=== PATIENT | male | born 1940 | race Caucasian/White ===

== ENCOUNTER 2018-05-29 16:42 | Inpatient (IN) | payer MEDICARE ==
[~2018-05-29 16:42] MED LIST: ISOVUE-370 76%-LOCM 1 ML ONE
[2018-05-29 17:24] LABS: #Lymphocytes 0.6 thou/uL (1.20-3.40); #Monocytes 1.1 thou/uL (0.11-0.59); #Neutrophils 8.2 thou/uL (1.40-6.50); %Basophils 0.3 % (0.0-1.0); %Eosinophils 0.2 % (0.0-10.0); %Lymphocytes 6.1 % (21.0-51.0); %Monocytes 10.6 % (0.0-10.0); %Neutrophils 82.8 % (42.0-75.0); Hemoglobin 14.6 g/dL (14.0-18.0); Mean Corpuscular HGB CONC 33.3 g/dL (32.0-36.0); Mean Corpuscular Hemoglobin 31.6 pg (27.0-31.0); Mean Corpuscular Volume 94.9 fL (78.0-98.0); Platelet Count 201 thou/uL (130-400); RBC Distribution Width 11.2 % (11.5-14.5); Red Blood Cell (RBC) Count 4.61 mill/uL (4.70-6.10)
[2018-05-29 17:39] LABS: ALT (SGPT) 13 U/L (8-55); AST (SGOT) 29 U/L (5-34); Albumin 3.8 g/dL (3.4-4.8); Alkaline Phosphatase 82 U/L (40-150); Anion Gap 16 mmol/L (10-20); BUN (Urea Nitrogen) 12 mg/dL (8.4-25.7); Bilirubin, Total 0.7 mg/dL (0.2-1.2); CK (CPK) 158 U/L (30-200); Calc. Creatinine Clearance 0 mL/min (70-130); Calcium 8.9 mg/dL (7.8-10.44); Carbon Dioxide 18 mmol/L (23-31); Chloride 103 mmol/L (98-107); Estimated GFR-MDRD 88; Globulin 2.7 g/dL (2.4-3.5); Glucose 115 mg/dL (83-110); Lipase 8 U/L (8-78); Potassium 4.4 mmol/L (3.5-5.1); Protein, Total 6.5 g/dL (5.8-8.1); Sodium 133 mmol/L (136-145)
--- NOTE | 2018-05-29 17:41 | RAD ---
AP VIEW CHEST 05/29/18 HISTORY: Chest pain. AP view chest obtained on 05/29/18. Comparison made to previous exam from 04/04/16. AP view chest demonstrates EKG leads seen over the chest. ACDF plate and screws are in place. There appears to be an area of soft tissue density in the retrocardiac area compatible with likelihoo d large hiatal hernia. No evidence of effusions seen. IMPRESSION: Findings compatible with likely large hiatal hernia, otherwise unremarkable AP view chest. POS: [facility]
[2018-05-29] MEDS ORDERED: Piperacillin/Tazobactam 4.5 GM VIAL ONE (19:33)
--- NOTE | 2018-05-29 20:41 | RAD ---
TWO VIEWS RIGHT FOREARM: 05/29/18 AP and lateral views right forearm obtained. No evidence of right forearm fractures, subluxations or bony lesions seen. IMPRESSION: Normal two views right forearm. POS: [facility]
--- NOTE | 2018-05-29 20:56 | CT ---
CONTRAST ENHANCED CTA CHEST: 05/29/18 HISTORY: Patient with arm swelling. Increased pain. Sinus arrhythmia, occasional PVC. Contrast enhanced CTA of the chest performed. 2D and 3D reconstructed images performed on an [employer] 3D workstation. CTA chest demonstrates again a hiatal hernia seen. Intrabiliary gas is seen. The patient has a histor y of previous biliary procedures. No evidence of filling defects seen in the pulmonary arteries to hernandez ggest pulmonary emboli. No significant evidence of lymphadenopathy seen. Some areas of scarring seen in the left lower lobe. Mild coronary artery calcifications seen. IMPRESSION: No evidence of pulmonary emboli seen. No evidence of significant thoracic dissection or aneurysm seen . POS: [facility]
[2018-05-29] MEDS ORDERED: Clindamycin/D5W 900 mg/50 ml Premix Bag ONE (21:08)
[2018-05-29] MEDS ORDERED: Ondansetron PF 4 MG/2 ML Vial IVP PRN (21:53)
[2018-05-29] MEDS ORDERED: Ondansetron ODT 4 MG TAB PO PRN (21:53)
[2018-05-29] MEDS ORDERED: Acetaminophen 325 MG TAB PO PRN (21:53)
--- NOTE | 2018-05-29 22:02 | ULT ---
RIGHT UPPER EXTREMITY VENOUS ULTRASOUND EVALUATION: 05/29/18 HISTORY: Right upper extremity swelling. Multiple longitudinal and transverse images of the right upper extremity venous system is obtained us ing a multihertz linear array transducer. Real time, color flow and spectral waveform doppler analysi s demonstrates the right internal jugular vein and right subclavian vein to be patent. The right axillar vein is patent. Some echogenic clot is seen in the right brachial vein extending fr om the antecubital fossa to just below the level of axilla. The right cephalic vein is patent. The right basilic vein is also patent. IMPRESSION: Area of echogenic clot in the right brachial vein between the axillary region and elbow. POS: [facility]
--- NOTE | 2018-05-29 22:08 | RAD ---
AP AND LATERAL VIEWS AND OBLIQUE VIEWS RIGHT HAND 05/29/17 Three views right hand demonstrate extensive surgical resection of the proximal portion of the carpal bones. No evidence of acute fracture, subluxations or bony lesions seen. Swelling is seen along the dorsal a spect of the right hand. IMPRESSION: Postsurgical resection of carpal bones. No acute right hand abnormality. POS: [facility]
[2018-05-29] MEDS ORDERED: VANCOMYCIN IVPB PRN (22:13)
[2018-05-29 23:29] LABS: Troponin I 0.011 ng/mL (< 0.028)
--- NOTE | 2018-05-30 01:55 | HP ---
PRIMARY CARE DOCTOR: The patient goes to [facility]. CODE STATUS FOR THIS PATIENT: Full code. TIME OF EVALUATION: 9:00 p.m. CHIEF COMPLAINT: Chest pain. HISTORY OF PRESENT ILLNESS: This is a 77-year-old male patient with past medical history of SVT, ablation, and hypothyroidism, came to the hospital after having an episode of right wrist induration, redness, as noted the patient has surgery done in the right wrist a couple of weeks ago. Orthopedic has been called and has recommended to start the patient on antibiotics also had some associated chest pain in the right upper chest, it was sharp in nature. No clear triggers , no alleviating factors, improved by self. REVIEW OF SYSTEMS: CONSTITUTIONAL: The patient had no fever. The patient had chills, generalized weakness. RESPIRATORY: No cough, sputum production, or shortness of breath. CARDIOVASCULAR: No chest pain or palpitations. GASTROINTESTINAL: No nausea, vomiting, diarrhea, or abdominal pain. WAREHOUSE MATERIAL HANDLER: The patient has been confused. No dizziness, headache, or feeling lightheaded. GENITOURINARY: No burning on urination. EXTREMITIES: Right upper arm has significant deep redness, swelling, tenderness with decreased range of motion. All other systems were reviewed and negative except for the findings mentioned above. PAST MEDICAL HISTORY: As mentioned in the HPI. PAST SURGICAL HISTORY: The patient has cholecystectomy, appendectomy, hernia repair, spinal surgery, cervical fusion, right shoulder surgery, right wrist surgery on 05/27/2018. PSYCHIATRIC HISTORY: Depression. SOCIAL HISTORY: Denies alcohol use. The patient denies drug use. No smoking history. FAMILY HISTORY: Noncontributory to this case. KNOWN ALLERGIES: To codeine and morphine. REPORTED MEDICATIONS: 1. Levothyroxine. 2. Sertraline. PHYSICAL EXAMINATION: VITAL SIGNS: On presentation, blood pressure 151/94 with heart rate 101, respiratory rate was 20, temperature 98.7, pain was 0/10, and oxygen saturation was 93% on room air. GENERAL APPEARANCE: The patient is alert, disoriented, not in acute distress. HEENT: Eyes, normal conjunctivae. Moist oral mucosa. Anicteric. No JVD. RESPIRATORY: Bilateral air entry. No rales. No wheezing. Symmetric expansion. CARDIOVASCULAR: Normal rate, regular rhythm. No murmurs. No gallop. No edema. ABDOMEN: Soft. Normal bowel sounds. MUSCULOSKELETAL: Baseline range of motion and strength except for the right wrist which has redness, tenderness, decreased range of motion, and increased temperature. SKIN: Warm, intact. No pallor. No rash. No redness except for the findings that described in musculoskeletal. Peripheral pulses are present. Capillary refill seems to be intact. NEUROLOGIC: No evidence of any new focal weakness. Baseline speech. Cranial nerves seems to be intact. PSYCHIATRIC: The patient is in good mood. No anxiety. Optimal judgment. IMAGING STUDIES: EKG was reviewed. The patient has sinus rhythm with some PACs , ventricular rate 94, VT 170, QRS 76, QT corrected 470. Chest x-ray was reviewed. The patient has findings compatible likely large hiatal hernia, otherwise unremarkable AP view chest. Chest and thorax CTA was done, the patient has no evidence of pulmonary embolism. No thoracic dissection or aneurysms seen. Vascular ultrasound was done, the patient has area of echogenic clot in the right brachial vein between the axillary region and elbow. Two-view right forearm x-ray was done, it was normal. Hand x-ray, the patient has postsurgical resection of carpal bones. No acute right hand abnormalities. LABORATORY DATA: Reviewed. The patient has white count 10, hemoglobin 14.6, MCV 94.9, and platelet count 201. Chemistry; sodium 133, potassium 4.4, chloride 103, carbon dioxide 18, anion gap 16, BUN 12, creatinine 0.84, GFR 88, glucose 115. Lactic acid 1.0, calcium 9.9. Total bilirubin 0.7, AST 29, ALT 13, and alkaline phosphatase 82. CK 158. Troponin I was negative x2. Serum total protein 6.5, albumin 3.8, globulin 2.7, albumin globulin ratio was 1.4. Lipase 8. ASSESSMENT AND PLAN: The patient will be placed in the hospital with following medical problems: 1. Right brachial deep venous thrombosis. We will discuss with Orthopedics to place the patient on full anticoagulation. Surgery was done on the , five days ago. We will follow recommendations from Orthopedics. 2. Cellulitis of the right upper extremity. The patient has been started on vancomycin, clindamycin, and Zosyn. Orthopedics been consulted. We will follow recommendations. We will follow cultures, we will adjust treatment as per sensitivity. 3. Hyponatremia with sodium of 133, this is mild, no need for any acute intervention at this point. We will monitor, we will treat accordingly. 4. Non-anion gap metabolic acidosis. No clear etiology. We will monitor and we will treat accordingly. 5. Chest pain on presentation, likely ACS. Troponins are negative. EKG is normal. We will monitor on tele, could decide on stress test in the morning is warranted , does not seem to be the primary problem. 6. Hypothyroidism, reconcile home medications. Continue hormone replacement. 7. Deep venous thrombosis prophylaxis. Job ID: [id number] [facility]ITAL[facility]
[2018-05-30] MEDS ORDERED: Clindamycin/D5W 600 MG in Premix Bag 1 BAG IVPB SCH (02:00)
[2018-05-30] MEDS ORDERED: Clindamycin/D5W 900 mg/50 ml Premix Bag ONE (02:47)
[2018-05-30] MEDS ORDERED: Piperacillin/Tazobactam 4.5 GM VIAL ONE ×2 (02:47→10:10)
[2018-05-30 04:12] LABS: #Lymphocytes 0.8 thou/uL (1.20-3.40); #Neutrophils 6.4 thou/uL (1.40-6.50); %Basophils 0.3 % (0.0-1.0); %Eosinophils 0.2 % (0.0-10.0); %Lymphocytes 9.1 % (21.0-51.0); %Monocytes 12.4 % (0.0-10.0); Hemoglobin 12.7 g/dL (14.0-18.0); Mean Corpuscular HGB CONC 33.5 g/dL (32.0-36.0); Mean Corpuscular Hemoglobin 31.7 pg (27.0-31.0); Mean Corpuscular Volume 94.7 fL (78.0-98.0); Mean Platelet Volume 8.1 fL (7.4-10.4); Platelet Count 194 thou/uL (130-400); RBC Distribution Width 11.3 % (11.5-14.5); Red Blood Cell (RBC) Count 4.01 mill/uL (4.70-6.10); White Blood Cell (WBC) Count 8.2 thou/uL (4.8-10.8)
[2018-05-30 04:26] LABS: Anion Gap 13 mmol/L (10-20); BUN (Urea Nitrogen) 12 mg/dL (8.4-25.7); Calc. Creatinine Clearance 0 mL/min (70-130); Calcium 9.2 mg/dL (7.8-10.44); Carbon Dioxide 22 mmol/L (23-31); Chloride 104 mmol/L (98-107); Estimated GFR-MDRD 78; Glucose 117 mg/dL (83-110); Potassium 3.6 mmol/L (3.5-5.1); Sodium 135 mmol/L (136-145)
[2018-05-30] MEDS ORDERED: Indomethacin 25 mg Capsule PO SCH (09:00)
[2018-05-30] MEDS ORDERED: Enoxaparin Sodium 40 MG/0.4 ML SYRINGE SC SCH ×2 (09:00→10:15)
[2018-05-30] MEDS ORDERED: Clindamycin/D5W 600 mg/50 ml Premix Bag ONE (10:10)
--- NOTE | 2018-05-30 10:44 | CON ---
DATE OF CONSULTATION: 05/30/2018 The patient seen around 7:50 a.m. this morning. HISTORY OF PRESENT ILLNESS: The patient is a 77-year-old male, who recently underwent a right wrist proximal row carpectomy for treatment of scapholunate advanced collapse wrist arthritis. He is currently postoperative day #3 as his surgery was performed this past on May 27, 2018. He was admitted to the hospital yesterday evening as recommended by his primary care physician who from what I was told performed a house call yesterday to check on the patient because he was having chest pain and short of breath and she was able to examine his right wrist and saw some swelling and recommended that he be admitted to the hospital for workup with chest pain and also to have the right hand and wrist looked at as well. I was able to visit with the patient and see him at bedside this morning. He is afebrile. He denied any fevers. Currently, he denies any numbness or tingling in the fingers of his right hand. He localizes all of his pain to the right wrist. He denies any chest pain this morning and he denies any shortness of breath this morning; however, he did report some shortness of breath while he was at home. During his surgery on , I did appreciate some chalky white substance within the wrist joint which appeared to potentially represent gout within the wrist joint and this was debrided at the time of surgery and removed and the wrist was washed out at that time and it is possible that the scapholunate advanced collapse arthritis could be related to chronic gouty arthritis. I found the patient today in the room sitting on a chair, he was hanging the right hand and arm in a dependent position and using his right hand and wrist to lift him off the chair from a seated position to a standing position without a splint over the right hand and wrist. The patient has been admitted to the Internal Medicine Service for treatment of potential cellulitis and what the ER staff thought to be cellulitis of his right hand and he had been started on IV antibiotics. He also underwent an ultrasound of the right upper extremity which showed a deep vein clot between the axillary region in the right upper extremity and the elbow. PHYSICAL EXAMINATION: GENERAL: The patient is awake, alert, and oriented x3 and does not appear to be in any significant distress at this time. However, he is hanging the arm in a dependent position and using his right hand and wrist to lift himself off from a seated position to a standing position from his chair and he is moving the right hand and wrist freely. RIGHT UPPER EXTREMITY: There is no fusiform swelling of the right upper extremity; he is nontender to palpation over the flexor forearm and extensor forearm and there are no clinical signs of compartment syndrome. He is nontender to palpation over the biceps and triceps of the proximal right upper extremity. He has full active range of motion and passive range of motion of the right elbow joint without limitation; there is a surgical incision over the mid-dorsal aspect of the right wrist which is well approximated with nylon sutures and there is no purulent drainage or pus or signs of infection noted around the site. There is expected postoperative swelling around the dorsal aspect of the hand and some erythema which is also expected postoperatively as well. There is some erythema which could be related to postoperative changes as well. He is able to flex and extend the fingers, however, finger range of motion is somewhat limited secondary to postoperative swelling. All fingers are neurovascularly intact and he is able to sense a light touch over all finger tips and all flexor and extensor tendon functions are grossly intact; gentle passive range of motion in the right wrist does not elicit any instability, crepitus, or grinding; however, there is some mild pain elicited during this maneuver which is expected 3 days postop; there are no clinical signs of compartment syndrome and swelling is very localized to the area of surgery involving his right hand and wrist; there are no epitrochlear or axillary lymphadenopathy appreciated and there is no lymphangitis appreciated; he has 2+ radial and ulnar pulses and 2+ brachial artery pulse which is equal and symmetric compared to the asymptomatic left upper extremity. DIAGNOSTIC STUDIES: Right forearm and right hand x-rays were reviewed and discussed by me with the patient and alignment appears to be normal. The capitate is well seated within the lunate fossa of the distal radius and I do not appreciate any significant joint space widening and I do not appreciate any radiographic evidence of infection. His laboratory work which consist of complete blood cell count and chem-7 panels do not reveal any elevation in the white cell count The ultrasound performed of the right upper extremity shows an echogenic abnormality involving one of the veins between the axilla and the elbow of the right upper extremity, potentially resembling a venous thrombosis in this area as per official reading by the report. ASSESSMENT AND PLAN: Right hand and wrist pain and swelling postoperative day # 3, status post right wrist proximal row carpectomy. I do not see any clinical signs of infection and clinically, I do not believe that his symptoms this morning are consistent with cellulitis, however, if there is concern for cellulitis, the Internal Medicine team may consider continuing the antibiotics. I did place him on indomethacin to start today 50 mg 3 times a day and he should continue the indomethacin for 7 days in order to treat potential gout flare. He may discontinue the Ibuprofen while on the Indomethacin. I replaced the patient into a volar wrist splint today which he states felt comfortable and I propped the right hand and wrist up on 2 pillows today above the level of his heart in order to help treat the swelling and the pain and recommended to utilize ice packs over the hand and wrist also to help reduce the pain and swelling. I have instructed him to continue with a finger range of motion exercise program both active and passive. He should remain completely nonweightbearing and avoid pushing or pulling activities regarding use of his right hand and wrist and the weightbearing status regarding use of his right hand and wrist will remain in place for at least 4 to 6 weeks postoperatively. I would be happy to follow him in the hospital during his hospital stay, however, if he is discharged, he can follow up with me in the clinic as previously scheduled for his postoperative visit and suture removal. There are no contraindications from a hand and wrist standpoint to begin anticoagulation for treatment of a deep vein thrombosis in the right upper extremity and the Internal Medicine team may consider a vascular surgery consultation in order to provide further insight regarding treatment of his right upper extremity deep vein thrombosis if needed. Difficult for me to say if the findings on his recent ultrasound are chronic or acute in nature, however, given his recent surgery, there is potential that these could be acute findings. He should remain admitted to the Internal Medicine team and I would be happy to follow him as a consult during his hospital stay should any of his hand or wrist symptoms worsen. Please call Dr. Manish Martinez M.D. cellphone at [phone] for further questions. Job ID: [id number] [facility]
--- NOTE | 2018-05-30 11:27 | PRG ---
DATE OF SERVICE: 05/30/2018 SUBJECTIVE: The patient reports he feels fine this morning. He has no complaints as he is not having significant pain in his hand, and he can move his fingers adequately. Temperature 97.9, BP 126/65, pulse 82, respirations 18, O2 saturation 98% on room air. OBJECTIVE: GENERAL APPEARANCE: Age-appropriate male in no distress. He is asleep, very easily awaken, pleasant, conversant, in no distress. HEART: Regular rate and rhythm without murmurs, gallops, or rubs. LUNGS: Clear bilaterally. No wheezes or rales. ABDOMEN: Soft, nontender, and nondistended. Positive bowel sounds. No masses. No organomegaly. EXTREMITIES: Lower extremities have no cyanosis, clubbing, or edema. Right upper extremity is in a soft brace. There is some slight edema and discoloration of the proximal fingers with some edema, minimal warmth and blanchability. Normal sensation. Good capillary refill. LABORATORY DATA: White count 8.2, hemoglobin 12.7, platelets 194. Sodium 135, potassium 3.6, chloride 104, CO2 is 22, BUN 12, creatinine 0.93, glucose 117. Troponins negative x3. Blood cultures negative thus far. IMPRESSION AND PLAN: 1. Right brachial vein deep vein thrombosis. The patient is recently postop and has some inflammation of the wrist area, where he had the surgery. Therefore, we will hold off on putting him on any of the longer-acting medications and just keep him on Lovenox for now. Once he is able to be reassessed tomorrow, we can ensure that there will not be need for any surgical intervention. He may be converted over to p.o. Eliquis. 2. Right wrist inflammation. Differential includes the possibility of simple postoperative inflammatory changes, infection, or remotely even gout. We will check uric acid level in the morning. He has been started on vancomycin, Zosyn, and clindamycin. We will continue with the vancomycin and Zosyn, and stop the clindamycin. Orthopedic Surgery, who did the surgery, Dr. Martinez, saw him this morning, redressed the hand and has started him on indomethacin for inflammatory changes. His white count is normal. 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 3. Chest pain. The patient had reported some chest pain on admission as well that appears to be resolved. His troponins are negative, and his library monitor is negative. The patient underwent a stress test at this facility in March, which was negative, although there was a finding of a large hiatal hernia which is more likely this patient's source of pain. We will keep him on a PPI, and at this point, I believe it is safe to believe that this is noncardiac chest pain. The patient also had a CT angiogram of the chest to rule out potential pulmonary embolus given his brachial vein DVT. This was negative as was his chest x-ray. 4. Encephalopathy. The patient had some reported confusion and nurse indicated that at the end of her shift last evening, the patient was a bit confused. He is better this morning. Per her report, he appears to be appropriate at this time. 5. Hypothyroidism. Continue with his usual dose of levothyroxine. 6. Currently, history of some depression. Continue with his sertraline. Job ID: [id number]
[2018-05-30] MEDS ORDERED: Enoxaparin Sodium 40 MG/0.4 ML SYRINGE ONE (12:30)
[2018-05-30 15:03] VITALS: BMI 22.9
[2018-05-30] MEDS: Piperacillin/Tazobactam 4.5 GM in Sodium Chloride 0.9% 100 ML IVPB SCH ×3 (16:14→17:38)
[2018-05-30] MEDS: Losartan 25 MG TAB PO SCH (16:15)
[2018-05-30] MEDS: Vancomycin HCl 1.25 GM in Sodium Chloride 0.9% 250 ML 250 ML IVPB SCH ×2 (16:15→20:36)
[2018-05-30] MEDS: Levothyroxine Sodium 88 MCG TAB PO SCH (16:15)
[2018-05-30] MEDS: Indomethacin 25 mg Capsule PO SCH ×2 (16:16→17:38)
[2018-05-30] MEDS: Enoxaparin Sodium 40 MG/0.4 ML SYRINGE SC SCH (20:36)
[2018-05-30] MEDS ORDERED: Pravastatin Sodium 20 MG TAB PO SCH (21:00)
[2018-05-30] MEDS ORDERED: Cyclobenzaprine 10 MG TAB PO SCH (21:00)
[2018-05-31] MEDS: Piperacillin/Tazobactam 4.5 GM in Sodium Chloride 0.9% 100 ML IVPB SCH ×2 (01:30→09:21)
[2018-05-31] MEDS: Levothyroxine Sodium 88 MCG TAB PO SCH (05:09)
[2018-05-31] MEDS: Vancomycin HCl 1.25 GM in Sodium Chloride 0.9% 250 ML 250 ML IVPB SCH (08:21)
[2018-05-31] MEDS: Losartan 25 MG TAB PO SCH (08:21)
[2018-05-31] MEDS: Enoxaparin Sodium 40 MG/0.4 ML SYRINGE SC SCH (08:22)
[2018-05-31] MEDS: Indomethacin 25 mg Capsule PO SCH ×2 (08:22→11:57)
[2018-05-31 08:40] LABS: #Eosinphils 0.2 thou/uL (0.0-0.7); #Lymphocytes 0.8 thou/uL (1.20-3.40); #Monocytes 0.6 thou/uL (0.11-0.59); %Basophils 0.9 % (0.0-1.0); %Eosinophils 3.4 % (0.0-10.0); %Lymphocytes 17.4 % (21.0-51.0); %Monocytes 13.2 % (0.0-10.0); %Neutrophils 65.1 % (42.0-75.0); Hemoglobin 12.2 g/dL (14.0-18.0); Mean Corpuscular HGB CONC 33.3 g/dL (32.0-36.0); Mean Corpuscular Hemoglobin 31.7 pg (27.0-31.0); Mean Corpuscular Volume 95.1 fL (78.0-98.0); Mean Platelet Volume 7.8 fL (7.4-10.4); Platelet Count 224 thou/uL (130-400); RBC Distribution Width 11.2 % (11.5-14.5); Red Blood Cell (RBC) Count 3.87 mill/uL (4.70-6.10); White Blood Cell (WBC) Count 4.6 thou/uL (4.8-10.8)
[2018-05-31] MEDS ORDERED: Enoxaparin Sodium 40 MG/0.4 ML SYRINGE SC SCH (09:00)
[2018-05-31 09:01] LABS: Vancomycin, Trough 16.1 ug/mL
[2018-05-31 09:03] LABS: Anion Gap 12 mmol/L (10-20); BUN (Urea Nitrogen) 19 mg/dL (8.4-25.7); Calc. Creatinine Clearance 55 mL/min (70-130); Calcium 9.1 mg/dL (7.8-10.44); Carbon Dioxide 26 mmol/L (23-31); Chloride 106 mmol/L (98-107); Estimated GFR-MDRD 59; Glucose 101 mg/dL (83-110); Potassium 3.6 mmol/L (3.5-5.1); Sodium 140 mmol/L (136-145); Uric Acid 4.4 mg/dL (3.5-7.2)
[2018-05-31] MEDS ORDERED: Apixaban 5 MG TAB PO SCH ×3 (10:45→21:00)
--- NOTE | 2018-05-31 12:41 | PDOC.PN ---
- Subjective Encounter Start Date: 05/31/18 Encounter Start Time: 12:30 Subjective: Patient without pain in right wrist in splint, some right upper arm/ shoulde -: pain on and off, no chest pain, no confusion - Objective Resuscitation Status - Order Detail: 05/29/18 21:53 Resuscitation Status Routine Resuscitation Status: FULL: Full Resuscitation MAR Reviewed: Yes Vital Signs & Weight: Vital Signs (12 hours) Temp Pulse Resp BP Pulse Ox 05/31/18 08:00 97.8 F 55 L 17 121/58 L 97 05/31/18 03:49 63 16 104/64 99 Weight Weight 169 lb 3 oz I&O: 05/30/18 05/31/18 06/01/18 06:59 06:59 06:59 Intake Total 860 Output Total 300 Balance 560 Result Diagrams: 05/31/18 08:16 05/31/18 08:16 Phys Exam - Physical Examination Constitutional: NAD HEENT: moist MMs Respiratory: no wheezing, no rales, no rhonchi, clear to auscultation bilateral Cardiovascular: RRR, no significant murmur Gastrointestinal: soft, positive bowel sounds right wrist with splint in place, no erythma beyond splint Neurological: non-focal Psychiatric: normal affect, A&O x 3 Dx/Plan (1) Status post proximal row carpectomy of wrist Code(s): Z98.890 - OTHER SPECIFIED POSTPROCEDURAL STATES Status: Acute Comment: no evidence of cellulitis per ortho, no fever, no leukocytosis, will d/ c antibiotics (2) Thrombosis of right brachial vein Code(s): I82.621 - ACUTE EMBOLISM AND THROMBOSIS OF DEEP VEINS OF R UP EXTREM Status: Acute Qualifiers: Chronicity: acute Qualified Code(s): I82.621 - Acute embolism and thrombosis of deep veins of right upper extremity Comment: eliquis 10mg BID for 1 week, then 5mg bid for 3 months after that (3) Chest pain Code(s): R07.9 - CHEST PAIN, UNSPECIFIED Status: Resolved Comment: neg stress test last month, GERD most likely source, on PPI (4) Acute metabolic encephalopathy Code(s): G93.41 - METABOLIC ENCEPHALOPATHY Status: Resolved (5) Hypothyroidism Code(s): E03.9 - HYPOTHYROIDISM, UNSPECIFIED Status: Chronic (6) Depression, major Code(s): F32.9 - MAJOR DEPRESSIVE DISORDER, SINGLE EPISODE, UNSPECIFIED Status : Chronic Comment: on Sertraline - Plan cont current plan of care patient can be discharge home today * . - Discharge Day Encounter end time: 12:45
[2018-05-31 16:11] VITALS: BP 120/62; TEMP 97.5
--- NOTE | 2018-05-31 23:20 | DIS ---
DATE OF ADMISSION: 05/29/2018 DATE OF DISCHARGE: 05/31/2018 PRIMARY CARE PHYSICIAN: Sonali Jesus MD REASON FOR ADMISSION: Right brachial deep venous thrombosis and possible cellulitis of the right upper extremity. DIAGNOSES AT DISCHARGE: 1. Acute right brachial vein thrombosis in the right upper extremity. 2. Status post proximal row carpectomy of the right wrist without evidence of infection. 3. Chest pain, noncardiac. 4. Acute metabolic encephalopathy, resolved. 5. Hypothyroidism. 6. Major depression. PROCEDURES: 1. CTA of the chest and thorax showing no evidence of pulmonary embolism and no evidence of thoracic dissection or aneurysm. 2. Vascular ultrasound of the right upper extremity showing an area of echogenic clot in the right brachial vein between the axillary region and the elbow. 3. Forearm x-ray negative for fracture. 4. Right hand x-ray negative for fracture or osseous lesion. CONSULTATIONS: Ortho, Dr. Martinez. SUMMARY OF HOSPITAL COURSE: This is a 77-year-old white male, who recently had a carpal row resection for severe arthritis by Dr. Martinez. He presented a couple weeks later for swelling and redness of the right wrist and right arm and chest pain. The patient was noted to have mild redness and some swelling around the surgical site. Dr. Martinez was consulted. Initially, antibiotics were started. However, patient's white blood cell count was negative. He remained afebrile. After reviewing the wrist, Dr. Martinez reported that it looks like normal postoperative healing. The patient did have an ultrasound of the right upper extremity that showed the above brachial vein clot. He was started on Lovenox. CTA of the chest was negative. Cardiac markers were negative. The patient has had a recent negative stress test. He does have some gastroesophageal reflux disease problems in the past. He was started on Protonix for noncardiac chest pain. The patient did well during hospitalization. His Lovenox was transitioned over to Eliquis 10 mg twice a day for 1 week followed by 5 mg twice a day after that. It is anticipated that he will need to have anticoagulation for 3 months and today, the patient is being discharged home. DISCHARGE MANAGEMENT: Discharged home. ACTIVITY: As tolerated. DIET: Healthy heart low-sodium diet. MEDICATIONS: 1. Eliquis 5 mg two tablets twice a day for 1 week followed by 1 tablet twice a day after that, 74 tabs dispensed. 2. Flexeril 10 mg at night, 30 tablets dispensed. 3. Indomethacin 50 mg 3 times a day, 18 caps dispensed. 4. Losartan 25 mg daily, 30 tablets dispensed. 5. Protonix 40 mg daily, 30 tablets dispensed. 6. Pravastatin 10 mg at night, 30 tablets dispensed. 7. Levothyroxine 88 mcg daily. 8. Sertraline 50 mg daily. FOLLOWUP: The patient is to follow up with Dr. Jesus in [address] Martinez as previously scheduled for his suture removal. Job ID: [id number]
== END 2018-05-31 16:45 | disposition home or self-care (01) | DRG 299 ==
LOC: ERS 16:42 → ERHOLD 20:15 → 2NO 05-30 14:16
PROVIDERS: ADMIT Hospitalist; ATTEND Hospitalist
DX: I82.621 Acute embolism and thrombosis of deep veins of right upper extremity (principal); G93.41 Metabolic encephalopathy; E87.1 Hypo-osmolality and hyponatremia; E87.2 Acidosis; K21.9 Gastro-esophageal reflux disease without esophagitis; R07.89 Other chest pain; E03.9 Hypothyroidism, unspecified; F32.9 Major depressive disorder, single episode, unspecified; Z79.899 Other long term (current) drug therapy; Z98.890 Other specified postprocedural states
CPT/HCPCS: 36415; 71045; 71275; 80048; 80053; 80202; 82550; 83605; 83690; 84484; 84550; 85025; 87040; 93005; 94760; 96361; 96365; 96366; 96367; 96372; J1650; J2543; J3370; J3490; J7050; Q9966

== ENCOUNTER 2018-11-11 14:22 | Outpatient (CLI) | payer MEDICARE ==
--- NOTE | 2018-11-11 14:56 | RAD ---
TWO VIEWS RIGHT HIP: 11/11/18 HISTORY: Right hip pain. No specific known injury. COMPARISON: None. FINDINGS: There is no evidence of a fracture or dislocation involving the right hip. Degenerative changes seen in the lower lumbar spine. No other osseous abnormality. IMPRESSION: No acute osseous abnormality right hip. POS: [facility]
--- NOTE | 2018-11-11 15:42 | MRI ---
MRI Lumbar Spine WO Con History: [age] Comparison: MRI 2017 Findings: Aortic contour is nonaneurysmal. Large left renal cysts. No retroperitoneal periaortic adenopathy. No marrow infiltrative process. Levels are as follows: L1/L2: Mild facet arthropathy. Mild degenerative disc space height loss. Small central posterior disc osteophyte complex. No neural foraminal or spinal canal narrowing. L2/L3: Mild degenerative disc space height loss and circumferential disc osteophyte complex. Mild fac et arthropathy. Mild bilateral neural foraminal narrowing. L3/L4: Mild degenerative disc space height loss. Low-grade disc desiccation. Low-grade circumferentia l disc osteophyte complex greatest in the subsequent foraminal zones. Mild to moderate bilateral neural foraminal narrowing. No significant spinal canal narrowing. L4/L5: There is a central disc protrusion superimposed on a circumferential disc osteophyte complex. There is moderate bilateral subfrontal disc osteophyte complexes with moderate facet arthropathy. Moderate bilateral neural foraminal narrowing with abutment of the traversing nerve roots. L5/S1: Advanced degenerative disc space height loss. Low-grade circumferential disc osteophyte comple x. Mild facet arthropathy. Moderate right neural foraminal narrowing. Impression: Moderate degenerative changes as described.
== END 2018-11-11 14:23 | disposition home or self-care (01) ==
LOC: BICMRI 14:22
PROVIDERS: ATTEND Neurological Surgery
DX: M54.5 Low back pain (principal); M25.551 Pain in right hip; M47.816 Spondylosis without myelopathy or radiculopathy, lumbar region
CPT/HCPCS: 72148

== ENCOUNTER 2021-08-23 14:02 | Outpatient (CLI) | payer MEDICARE ==
[2021-08-23 15:38] LABS: #Basophils 0.1 10x3/uL (0.0-0.2); #Eosinphils 0.1 10x3/uL (0.0-0.5); #Monocytes 0.5 10x3/uL (0.0-1.1); #Neutrophils 4.2 10x3/uL (1.5-8.4); %Basophils 0.9 % (0.0-2.0); %Eosinophils 1.2 % (0.0-6.0); %Lymphocytes 18.9 % (18.0-47.0); %Monocytes 7.8 % (0.0-10.0); Hemoglobin 12.4 g/dL (13.5-17.5); Mean Corpuscular HGB CONC 33.5 g/dL (32.0-36.0); Mean Corpuscular Hemoglobin 29.8 pg (27.0-33.0); Mean Corpuscular Volume 88.9 fl (81.2-95.1); Mean Platelet Volume 10.6 fl (7.4-10.4); Platelet Count 236 10x3/uL (150-450); RBC Distribution Width 14.1 % (11.5-14.5); Red Blood Cell (RBC) Count 4.16 10x6/uL (4.32-5.72); White Blood Cell (WBC) Count 5.9 10x3/uL (3.5-10.5)
[2021-08-23 16:08] LABS: Anion Gap 17 mmol/L (10-20); BUN (Urea Nitrogen) 21 mg/dL (8.4-25.7); Calc. Creatinine Clearance 0 mL/min (70-130); Calcium 9.6 mg/dL (7.8-10.44); Carbon Dioxide 23 mmol/L (23-31); Chloride 108 mmol/L (98-107); Glucose 87 mg/dL (83-110); Potassium 5.9 mmol/L (3.5-5.1); Sodium 142 mmol/L (136-145)
[2021-08-24 02:04] LABS: SARS-CoV-2 PCR by NAA Not Detected (NotDetected)
== END 2021-08-23 14:03 | disposition home or self-care (01) ==
LOC: LABBT 14:02
PROVIDERS: ATTEND Internal Medicine Cardiovascular Disease
DX: Z01.812 Encounter for preprocedural laboratory examination (principal); I48.19 Other persistent atrial fibrillation; Z20.822 Contact with and (suspected) exposure to COVID-19
CPT/HCPCS: 80048; 85025; U0003; U0005

== ENCOUNTER 2021-08-28 06:18 | Day surgery (SDC) | payer MEDICARE ==
[2021-08-23 15:53] VITALS: BMI 21.8
[2021-08-28] MEDS ORDERED: PROPOFOL 20 ML ONE (07:20)
[2021-08-28] MEDS ORDERED: Lidocaine 1% PF 5 ML VIAL ONE (07:23)
== END 2021-08-28 09:05 | disposition home or self-care (01) ==
LOC: SDC 06:18
PROVIDERS: ATTEND Internal Medicine Cardiovascular Disease
PROC: 5A2204Z Restoration of Cardiac Rhythm, Single (ICD-10-PCS; principal; 2021-08-28)
DX: I48.19 Other persistent atrial fibrillation (principal); I25.10 Atherosclerotic heart disease of native coronary artery without angina pectoris; I49.5 Sick sinus syndrome; I47.1 Supraventricular tachycardia; I11.0 Hypertensive heart disease with heart failure; I50.32 Chronic diastolic (congestive) heart failure; E78.00 Pure hypercholesterolemia, unspecified; Z79.01 Long term (current) use of anticoagulants; Z79.82 Long term (current) use of aspirin; Z79.899 Other long term (current) drug therapy; Z88.5 Allergy status to narcotic agent; Z95.0 Presence of cardiac pacemaker
CPT/HCPCS: 92960; J2704